=== PATIENT | female | born 1970 | race Caucasian/White ===

== ENCOUNTER 2018-02-09 05:32 | Observation (INO) | payer BC ==
[2018-02-09] MEDS ORDERED: MIDAZOLAM 1 MG/ML 2 ML INJ ×2 (07:05→07:12)
[2018-02-09] MEDS ORDERED: ROPIVACAINE 0.5 % 30 ML VIAL ×2 (07:12→10:30)
[2018-02-09] MEDS: CA CHLORIDE 10% 10 ML SYRINGE (08:40)
[2018-02-09] MEDS: THROMBIN 5000 UNIT VIAL (08:40)
[2018-02-09] MEDS: POLYMYXIN/BACITRACIN 1L IRRIG IRR (09:27)
[2018-02-09] MEDS ORDERED: morphine 10 MG INJ (10:12)
[2018-02-09] MEDS ORDERED: POLYMYXIN/BACITRACIN 1L IRRIG (10:30)
[2018-02-09] MEDS ORDERED: POVIDONE IODINE 10% 28.4 GM OINT (10:30)
[2018-02-09] MEDS ORDERED: ROCURONIUM 50 MG INJ (10:52)
[2018-02-09] MEDS ORDERED: PROPOFOL 20 ML (10:52)
[2018-02-09] MEDS ORDERED: LIDOCAINE 2% (SDV) 5 ML INJ (10:52)
[2018-02-09] MEDS ORDERED: ONDANSETRON 4 MG INJ (10:53)
[2018-02-09] MEDS ORDERED: METOCLOPRAMIDE 10 MG INJ (10:53)
[2018-02-09] MEDS ORDERED: SCOPOLAMINE 1.5 MG PATCH (10:53)
[2018-02-09] MEDS ORDERED: CEFAZOLIN 1 GM INJ ×2 (10:55→10:56)
[2018-02-09] MEDS ORDERED: SUGAMMADEX SODIUM 200 MG/2 ML VIAL IV (11:18)
[2018-02-09] MEDS ORDERED: BISACODYL 10 MG SUPP PR (12:00)
[2018-02-09] MEDS ORDERED: CEFAZOLIN 1 GM INJ IV (12:00)
[2018-02-09] MEDS ORDERED: morphine 10 MG INJ IV (12:00)
[2018-02-09] MEDS: HYDROmorphONE 0.2 MG/ML PCA IV (12:19)
[2018-02-09] MEDS ORDERED: MEPERIDINE 25 MG INJ (12:37)
[2018-02-09] MEDS ORDERED: ONDANSETRON 4 MG INJ IV ×2 (13:00→15:30)
[2018-02-09] MEDS ORDERED: FENTAnyl 50 MCG/ML VIAL IV ×2 (13:00→15:30)
[2018-02-09] MEDS: MEPERIDINE 25 MG INJ IV (13:25)
[2018-02-09] MEDS: SOD CHLORIDE 0.9% 1,000 ML IV (14:36)
[2018-02-09] MEDS: CEFAZOLIN 1 GM/50 ML (PMX) 50 ML IVPB ×2 (14:36→21:32)
[2018-02-09] MEDS ORDERED: HYDROmorphONE 1 MG/5 ML IV SYRINGE IV ×2 (15:30)
[2018-02-09] MEDS ORDERED: NALOXONE (0.4 MG/ML) INJ IV (15:30)
[2018-02-09] MEDS ORDERED: MEPERIDINE 25 MG INJ IV (15:30)
[2018-02-09] MEDS ORDERED: HYDROmorphONE 0.5 MG/0.5 ML SYG IV ×2 (19:30)
[2018-02-09] MEDS: SENNA/DOCUSATE NA (8.6MG/50MG) TAB PO (21:00)
[2018-02-09] MEDS: ONDANSETRON 4 MG INJ IV (21:01)
[2018-02-10] MEDS: OXYCODONE/ACETAMINOPHEN (5/325) TAB PO ×6 (00:36→20:33)
[2018-02-10] MEDS: HYDROmorphONE 0.2 MG/ML PCA IV ×2 (03:13→13:41)
[2018-02-10] MEDS: SOD CHLORIDE 0.9% 1,000 ML IV ×2 (04:42→07:50)
[2018-02-10] MEDS: CEFAZOLIN 1 GM/50 ML (PMX) 50 ML IVPB ×3 (05:59→21:09)
[2018-02-10] MEDS: SENNA/DOCUSATE NA (8.6MG/50MG) TAB PO ×2 (08:31→20:33)
[2018-02-10] MEDS: ONDANSETRON 4 MG INJ IV ×3 (08:47→20:33)
[2018-02-10] MEDS: RIVAROXABAN 10 MG TABLET PO (17:12)
[2018-02-11] MEDS: ONDANSETRON 4 MG INJ IV ×4 (00:45→13:30)
[2018-02-11] MEDS: OXYCODONE/ACETAMINOPHEN (5/325) TAB PO ×5 (00:46→17:34)
[2018-02-11] MEDS: CEFAZOLIN 1 GM/50 ML (PMX) 50 ML IVPB (05:21)
[2018-02-11] MEDS: SENNA/DOCUSATE NA (8.6MG/50MG) TAB PO (09:18)
[2018-02-11] MEDS: HYDROmorphONE 0.2 MG/ML PCA IV (09:23)
[2018-02-11] MEDS: RIVAROXABAN 10 MG TABLET PO (17:34)
[2018-02-11] MEDS ORDERED: MAGNESIUM HYDROXIDE 30ML CUP PO (21:00)
== END 2018-02-11 20:00 | disposition home or self-care (01) ==
LOC: SDS 05:32 → REC 11:51 → MS1 13:04
DX: M19.071 Primary osteoarthritis, right ankle and foot (principal); M19.072 Primary osteoarthritis, left ankle and foot; M65.9 Synovitis and tenosynovitis, unspecified; Z88.8 Allergy status to other drugs, medicaments and biological substances; Z91.041 Radiographic dye allergy status
CPT/HCPCS: 29898; 73610-RT; 93005; 97116; 97162; 97530; 99217